=== PATIENT | female | born 1960 | race African-American/Black ===

== ENCOUNTER 2024-04-17 06:32 | Inpatient (IN) | payer OTHER ==
[~2024-04-17] VITALS: Ht 162.6 cm; Wt 83.9 kg
[~2024-04-17 06:32] MED LIST: AMLO5TAB88 PO; ASPI-1406 PO; CLOP-31 PO; FAMO20TA8 PO; ISMO20 MT; METO-539 PO
[2024-04-17 07:31] LABS: BASOPHILS % 0.7 % (0.0-2.0); DIFFERENTIAL COMMENT 0; EOSINOPHILS % 1.7 % (0.0-5.0); HEMATOCRIT. 37.7 % (36.0-48.0); HEMOGLOBIN. 11.6 g/dL (12.0-16.0); LYMPHOCYTES % 26.7 % (20.0-50.0); MEAN CORPUSCULAR HEMOGLOBIN 22.2 pg (28.0-32.0); MEAN CORPUSCULAR HGB CONC 30.7 g/dL (31.0-37.0); MEAN CORPUSCULAR VOLUME 72.5 fL (81.0-99.0); MEAN PLATELET VOLUME 7.9 fl (7.4-10.4); MONOCYTES % 9.8 % (2.0-8.0); NEUTROPHILS % 61.1 % (40.0-76.0); PLATELET 287 x1000/uL (130-400); RED CELL DISTRIBUTION WIDTH 16.3 % (11.6-14.6)
[2024-04-17 07:38] LABS: CHLORIDE 110 mEq/L (98-107); POTASSIUM 3.7 mEq/L (3.5-5.1); SODIUM 143 mEq/L (136-145)
[2024-04-17 07:39] LABS: CALCIUM 8.9 mg/dL (8.7-10.4); CARBON DIOXIDE 27 mEq/L (21-32)
[2024-04-17 07:44] LABS: CREATININE 1.1 mg/dL (0.6-1.0); GLUCOSE 103 mg/dL (70-105); UREA NITROGEN BLOOD 17 mg/dL (9-23)
[2024-04-17 07:49] LABS: PROTHROMBIN TIME 11.1 sec (9.6-11.0)
[2024-04-17 07:50] LABS: TROPONIN I HIGH SENSITIVITY 60 ng/L (3.0-34)
[2024-04-17 09:15] LABS: TROPONIN I HIGH SENSITIVITY 225 ng/L (3.0-34)
[2024-04-17] MEDS ORDERED: GUAIFENESIN 200MG/10ML SUGAR FREE UDC PO PRN (09:15)
[2024-04-17] MEDS ORDERED: DOCUSATE SODIUM 100MG CAPSULE PO PRN (09:15)
[2024-04-17] MEDS ORDERED: IPRATROPIUM/ALBUTEROL 0.5-3(2.5)MG/3ML NEB HHN PRN (09:15)
[2024-04-17] MEDS ORDERED: MAGNESIUM/ALUMINUM HYDROXIDE/SIMETHICONE 30ML UDC PO PRN (09:15)
[2024-04-17] MEDS ORDERED: ACETAMINOPHEN 325MG TABLET PO PRN (09:15)
[2024-04-17] MEDS: HYDRALAZINE 20MG/ML VIAL IV NR (09:24)
[2024-04-17] MEDS: ACETAMINOPHEN 325MG TABLET PO PRN (09:37)
[2024-04-17 09:51] LABS: CLARITY URINE CLEAR (CLEAR); COLOR URINE YELLOW (YELLOW); GLUCOSE URINE NEGATIVE (NEGATIVE); KETONES URINE NEGATIVE (NEGATIVE); LEUKOCYTE ESTERASE URINE NEGATIVE (NEGATIVE); NITRITE URINE NEGATIVE (NEGATIVE); OCCULT BLOOD URINE NEGATIVE (NEGATIVE); PROTEIN URINE 4+ (NEGATIVE); SPECIFIC GRAVITY URINE 1.012 (1.005-1.030); UROBILINOGEN URINE 0.2 E.U./dL (0.2-1.0)
[2024-04-17] MEDS: ENOXAPARIN 40MG/0.4ML SYR SUBCUT SCH (10:18)
[2024-04-17 10:19] LABS: *AMPHETAMINES SCREEN URINE NEGATIVE (NEGATIVE)
[2024-04-17 10:20] LABS: *BARBITURATES SCREEN URINE NEGATIVE (NEGATIVE); *COCAINE SCREEN URINE NEGATIVE (NEGATIVE); METHADONE URINE SCREEN NEGATIVE (NEGATIVE); OPIATES URINE SCREEN NEGATIVE (NEGATIVE)
[2024-04-17 10:21] LABS: *BENZODIAZEPINES SCREEN URINE NEGATIVE (NEGATIVE); CANNABINOID URINE SCREEN NEGATIVE (NEGATIVE); ECSTASY MDMA SCREEN URINE NEGATIVE (NEGATIVE); PHENCYCLIDINE URINE SCREEN NEGATIVE (NEGATIVE)
[2024-04-17 10:29] LABS: TROPONIN I HIGH SENSITIVITY 354 ng/L (3.0-34)
[2024-04-17 11:38] LABS: BACTERIA URINE FEW; SQUAMOUS EPITHELIAL CELL URINE 1+ /lpf (RARE/1+); WBC URINE 0-2 /hpf (0-2); YEAST URINE NONE SEEN
[2024-04-17] MEDS: ASPIRIN 81MG EC TABLET PO SCH (11:40)
[2024-04-17] MEDS: CLOPIDOGREL 75MG TABLET PO SCH (11:41)
[2024-04-17] MEDS: AMLODIPINE 5MG TABLET PO SCH (11:42)
[2024-04-17] MEDS: HYDRALAZINE 20MG/ML VIAL IV PRN (14:29)
[2024-04-17] MEDS: ONDANSETRON HCL 4MG/2ML INJ IV PRN (14:45)
[2024-04-17] MEDS: NITROGLYCERIN 0.4MG TABLET SL SL PRN (15:14)
[2024-04-17] MEDS: CLONIDINE 0.1MG TABLET PO SCH (16:15)
[2024-04-17] MEDS: ISOSORBIDE MONONITRATE 20MG TABLET PO SCH ×2 (17:39→23:22)
[2024-04-17] MEDS: ENOXAPARIN 80MG/0.8ML SYR SUBCUT SCH (18:11)
[2024-04-17 18:16] LABS: CREATINE KINASE MB FRACTION 1.6 ng/mL (0.5-3.6)
[2024-04-17] MEDS: MORPHINE SULFATE 2 MG/ML INJ (NOT FOR IM USE) IV NR ×2 (20:50→23:23)
[2024-04-17] MEDS: NITROGLYCERIN OINT 1GM/INCH UDPKT TD SCH (21:38)
[2024-04-17 22:40] VITALS: BP 199/102; PULSE 88; RESP 18; TEMP 36.50292; O2SAT 97
[2024-04-17 22:45] VITALS: BP 197/87
[2024-04-17 23:15] VITALS: BP 199/102; PULSE 88; RESP 18; TEMP 36.5292
[2024-04-18] VITALS (23 sets, daily range): BP systolic 106–191; BP diastolic 76–123; PULSE 65–107; RESP 13–22; TEMP 36.61404–36.89184; O2SAT 96–99
[2024-04-18 01:08] LABS: TROPONIN I HIGH SENSITIVITY 922 ng/L (3.0-34)
[2024-04-18] MEDS ORDERED: *PATIENT'S OWN MEDICATION STORAGE XX SCH (02:00)
[2024-04-18] MEDS: LOSARTAN 25 MG TABLET PO NR (03:07)
[2024-04-18] MEDS: CLONIDINE 0.1MG TABLET PO PRN (05:19)
[2024-04-18] MEDS: MORPHINE SULFATE 2 MG/ML INJ (NOT FOR IM USE) IV NR (05:20)
[2024-04-18 07:27] LABS: CHLORIDE 105 mEq/L (98-107); SODIUM 141 mEq/L (136-145)
[2024-04-18 07:28] LABS: CALCIUM 9.8 mg/dL (8.7-10.4); CARBON DIOXIDE 24 mEq/L (21-32)
[2024-04-18 07:33] LABS: CREATININE 0.9 mg/dL (0.6-1.0); GLUCOSE 177 mg/dL (70-105); TRIGLYCERIDE 46 mg/dL (0-150); UREA NITROGEN BLOOD 10 mg/dL (9-23)
[2024-04-18 07:34] LABS: LDL CHOLESTEROL 69 mg/dL (5-100); T4 FREE 1.32 ng/dL (0.89-1.76); THYROID STIMULATING HORMONE 0.76 uIU/mL (0.55-4.78)
[2024-04-18 07:35] LABS: BASOPHILS % 0.1 % (0.0-2.0); CHOLESTEROL 137 mg/dL (<200); DIFFERENTIAL COMMENT 0; HDL CHOLESTEROL 51 mg/dL (>65); HEMATOCRIT. 43.4 % (36.0-48.0); HEMOGLOBIN. 13.8 g/dL (12.0-16.0); LYMPHOCYTES % 7.8 % (20.0-50.0); MEAN CORPUSCULAR HEMOGLOBIN 22.7 pg (28.0-32.0); MEAN CORPUSCULAR HGB CONC 31.8 g/dL (31.0-37.0); MEAN CORPUSCULAR VOLUME 71.4 fL (81.0-99.0); MEAN PLATELET VOLUME 7.9 fl (7.4-10.4); MONOCYTES % 4.5 % (2.0-8.0); NEUTROPHILS % 87.6 % (40.0-76.0); PLATELET 351 x1000/uL (130-400); RED BLOOD CELL COUNT 6.08 mill/uL (4.2-5.4)
[2024-04-18] MEDS: LOSARTAN 25 MG TABLET PO SCH (08:15)
[2024-04-18] MEDS: PANTOPRAZOLE SODIUM 40 MG/VIAL IV SCH (08:15)
[2024-04-18 08:17] LABS: POTASSIUM 2.6 mEq/L (3.5-5.1)
[2024-04-18] MEDS: POTASSIUM CHLORIDE 20MEQ TABLET SR PO SCH (08:32)
[2024-04-18 08:39] LABS: TROPONIN I HIGH SENSITIVITY 2253 ng/L (3.0-34)
[2024-04-18] MEDS: KETOROLAC 15MG/ML VIAL IV PRN (09:52)
[2024-04-18] MEDS: KCL 20MEQ/100ML PREMIX 100 ML IV SCH (09:52)
[2024-04-18] MEDS: HYDROMORPHONE HCL/PF 1MG/ML INJ IV NR (13:51)
[2024-04-18] MEDS: AMLODIPINE 5MG TABLET PO NR (14:59)
[2024-04-18] MEDS ORDERED: ENOXAPARIN 100MG/ML SYR SUBCUT SCH (16:24)
[2024-04-18] MEDS: NITROGLYCERIN 50MG PREMIX 250 ML IV PRN (16:30)
[2024-04-18 17:15] LABS: CHLORIDE 107 mEq/L (98-107); POTASSIUM 4.2 mEq/L (3.5-5.1); SODIUM 139 mEq/L (136-145)
[2024-04-18 17:16] LABS: CALCIUM 9.4 mg/dL (8.7-10.4); CARBON DIOXIDE 22 mEq/L (21-32)
[2024-04-18 17:21] LABS: CREATINE KINASE MB FRACTION 114.6 ng/mL (0.5-3.6); GLUCOSE 166 mg/dL (70-105); UREA NITROGEN BLOOD 10 mg/dL (9-23)
[2024-04-18 17:23] LABS: CREATINE KINASE 882 IU/L (34-145)
[2024-04-18 17:27] LABS: TROPONIN I HIGH SENSITIVITY 6911 ng/L (3.0-34)
[2024-04-18] MEDS: IOHEXOL-350 100 ML BOTTLE ONE (20:09)
[2024-04-18] MEDS: MORPHINE SULFATE 2 MG/ML INJ (NOT FOR IM USE) IV PRN (22:59)
[2024-04-19] VITALS (96 sets, daily range): BP systolic 108–158; BP diastolic 68–128; PULSE 63–129; RESP 12–36; TEMP 36.50292–37.05852; O2SAT 84–99
[2024-04-19 01:17] LABS: CREATINE KINASE MB FRACTION 210.2 ng/mL (0.5-3.6)
[2024-04-19 05:21] LABS: CALCIUM 9.5 mg/dL (8.7-10.4); CARBON DIOXIDE 24 mEq/L (21-32); CHLORIDE 105 mEq/L (98-107); POTASSIUM 4.2 mEq/L (3.5-5.1); SODIUM 138 mEq/L (136-145)
[2024-04-19 05:23] LABS: CREATINE KINASE MB FRACTION 204.7 ng/mL (0.5-3.6)
[2024-04-19 05:26] LABS: CREATININE 1.2 mg/dL (0.6-1.0)
[2024-04-19 05:27] LABS: GLUCOSE 140 mg/dL (70-105); UREA NITROGEN BLOOD 16 mg/dL (9-23)
[2024-04-19 05:40] LABS: CREATINE KINASE 1663 IU/L (34-145)
[2024-04-19 05:43] LABS: TROPONIN I HIGH SENSITIVITY 33542 ng/L (3.0-34)
[2024-04-19 05:52] LABS: HEMATOCRIT 41.7 % (36.0-48.0); HEMOGLOBIN 13.1 g/dL (12.0-16.0); MEAN CORPUSCULAR HEMOGLOBIN 22.4 pg (28.0-32.0); MEAN CORPUSCULAR HGB CONC 31.5 g/dL (31.0-37.0); MEAN CORPUSCULAR VOLUME 71.2 fL (81.0-99.0); RED BLOOD CELL COUNT 5.86 mill/uL (4.2-5.4); RED CELL DISTRIBUTION WIDTH 16.3 % (11.6-14.6); WHITE BLOOD COUNT 8.7 x1000/uL (4.5-11.0)
[2024-04-19] MEDS: FERROUS SULFATE 325MG TABLET PO SCH (06:01)
[2024-04-19] MEDS: MAGNESIUM 2 G PREMIX 50 ML IV NR (07:59)
[2024-04-19 11:27] LABS: PLATELET 344 x1000/uL (130-400)
[2024-04-19] MEDS ORDERED: NICARDIPINE 100 MG in SODIUM CHLORIDE 0.9% 60 ML IV PRN (13:15)
[2024-04-19 13:39] LABS: CREATINE KINASE MB FRACTION 132.6 ng/mL (0.5-3.6)
[2024-04-19] MEDS: NICARDIPINE 50 MG in SODIUM CHLORIDE 0.9% 250 ML IV PRN (13:43)
[2024-04-19 13:52] LABS: CREATINE KINASE 1531 IU/L (34-145)
[2024-04-19 13:55] LABS: TROPONIN I HIGH SENSITIVITY 34097 ng/L (3.0-34)
[2024-04-19] MEDS: MORPHINE SULFATE 2 MG/ML INJ (NOT FOR IM USE) IV PRN (16:50)
[2024-04-19] MEDS: DOCUSATE SODIUM 100MG CAPSULE PO SCH (20:14)
[2024-04-19 20:34] LABS: CREATINE KINASE MB FRACTION 73.2 ng/mL (0.5-3.6)
[2024-04-19 20:36] LABS: CREATINE KINASE 1179 IU/L (34-145)
[2024-04-19 20:52] LABS: TROPONIN I HIGH SENSITIVITY 20972 ng/L (3.0-34)
[2024-04-20] VITALS (47 sets, daily range): BP systolic 97–137; BP diastolic 59–95; PULSE 72–105; RESP 11–30; TEMP 36.3918–37.16964; O2SAT 8–99
[2024-04-20] MEDS ORDERED: HEPARIN 1000 UNITS/ML 10ML ONE (07:24)
[2024-04-20] MEDS ORDERED: LIDOCAINE HCL 1% 10 MG/ML 10ML VIAL ONE (07:24)
[2024-04-20] MEDS ORDERED: IODIXANOL 320MG/ML 100 ML BOTTLE IV ONE (07:24)
[2024-04-20] MEDS ORDERED: FENTANYL CITRATE/PF 50MCG/ML 2ML VIAL ONE (07:55)
[2024-04-20] MEDS ORDERED: MIDAZOLAM HCL 2 MG/2 ML VIAL ONE (07:55)
[2024-04-20] MEDS ORDERED: LIDOCAINE HCL 1% 20ML VIAL ONE (08:14)
[2024-04-20] MEDS ORDERED: NALOXONE HCL 0.4MG/ML VIAL IV PRN (09:15)
[2024-04-20] MEDS: ENOXAPARIN 30MG/0.3ML SYR SUBCUT SCH (09:30)
[2024-04-20 10:29] LABS: HEMOGLOBIN 11.4 g/dL (12.0-16.0); MEAN CORPUSCULAR HEMOGLOBIN 22.5 pg (28.0-32.0); MEAN CORPUSCULAR HGB CONC 31.7 g/dL (31.0-37.0); MEAN CORPUSCULAR VOLUME 70.9 fL (81.0-99.0); PLATELET 253 x1000/uL (130-400); RED BLOOD CELL COUNT 5.08 mill/uL (4.2-5.4); RED CELL DISTRIBUTION WIDTH 16.5 % (11.6-14.6); WHITE BLOOD COUNT 9.8 x1000/uL (4.5-11.0)
[2024-04-20 10:33] LABS: CHLORIDE 105 mEq/L (98-107); POTASSIUM 4.2 mEq/L (3.5-5.1); SODIUM 137 mEq/L (136-145)
[2024-04-20 10:34] LABS: CARBON DIOXIDE 25 mEq/L (21-32)
[2024-04-20 10:35] LABS: CALCIUM 8.6 mg/dL (8.7-10.4)
[2024-04-20 10:39] LABS: CREATININE 1.2 mg/dL (0.6-1.0); GLUCOSE 110 mg/dL (70-105)
[2024-04-20 10:40] LABS: UREA NITROGEN BLOOD 23 mg/dL (9-23)
[2024-04-20] MEDS: LOSARTAN 50 MG TABLET PO SCH (10:42)
[2024-04-20] MEDS: MORPHINE SULFATE 4 MG/ML INJ (FOR IV/IM USE) IV PRN (17:59)
[2024-04-20] MEDS: LOSARTAN 50 MG TABLET PO NR (18:15)
[2024-04-21] VITALS (10 sets, daily range): BP systolic 93–128; BP diastolic 59–82; PULSE 74–90; RESP 16–24; TEMP 36.22512–37.11408; O2SAT 97–99
[2024-04-21 06:06] LABS: CHLORIDE 104 mEq/L (98-107); POTASSIUM 3.7 mEq/L (3.5-5.1); SODIUM 133 mEq/L (136-145)
[2024-04-21 06:07] LABS: CALCIUM 8.5 mg/dL (8.7-10.4); CARBON DIOXIDE 24 mEq/L (21-32)
[2024-04-21 06:12] LABS: CREATININE 1.1 mg/dL (0.6-1.0); GLUCOSE 108 mg/dL (70-105)
[2024-04-21 06:13] LABS: HEMOGLOBIN 10.4 g/dL (12.0-16.0); MEAN CORPUSCULAR HGB CONC 32.6 g/dL (31.0-37.0); MEAN CORPUSCULAR VOLUME 70.6 fL (81.0-99.0); PLATELET 230 x1000/uL (130-400); RED BLOOD CELL COUNT 4.52 mill/uL (4.2-5.4); RED CELL DISTRIBUTION WIDTH 16.1 % (11.6-14.6); UREA NITROGEN BLOOD 26 mg/dL (9-23); WHITE BLOOD COUNT 7.7 x1000/uL (4.5-11.0)
[2024-04-21 06:20] LABS: TROPONIN I HIGH SENSITIVITY 18831 ng/L (3.0-34)
[2024-04-21] MEDS: AMLODIPINE 10MG TABLET PO SCH (08:15)
[2024-04-21] MEDS: FAMOTIDINE 20MG/2ML VIAL IV SCH (08:16)
[2024-04-21] MEDS: LOSARTAN 100 MG TABLET PO SCH (10:00)
[2024-04-21 21:31] LABS: CLARITY URINE CLEAR (CLEAR); COLOR URINE YELLOW (YELLOW); GLUCOSE URINE NEGATIVE (NEGATIVE); KETONES URINE NEGATIVE (NEGATIVE); LEUKOCYTE ESTERASE URINE 1+ (NEGATIVE); NITRITE URINE NEGATIVE (NEGATIVE); OCCULT BLOOD URINE NEGATIVE (NEGATIVE); PH URINE 5.5 (4.5-8.0); PROTEIN URINE NEGATIVE (NEGATIVE); SPECIFIC GRAVITY URINE 1.009 (1.005-1.030); UROBILINOGEN URINE 0.2 E.U./dL (0.2-1.0)
[2024-04-21 21:56] LABS: BACTERIA URINE NONE SEEN; RBC URINE NONE SEEN /hpf (0-2); SQUAMOUS EPITHELIAL CELL URINE NONE SEEN /lpf (RARE/1+); WBC URINE NONE SEEN /hpf (0-2)
[2024-04-22] VITALS (12 sets, daily range): BP systolic 93–149; BP diastolic 63–83; PULSE 63–79; RESP 16–21; TEMP 36.00288–37.503; O2SAT 9–99
[2024-04-22 08:47] LABS: CARBON DIOXIDE 24 mEq/L (21-32); CHLORIDE 104 mEq/L (98-107); POTASSIUM 4.1 mEq/L (3.5-5.1); SODIUM 135 mEq/L (136-145)
[2024-04-22 08:48] LABS: CALCIUM 8.7 mg/dL (8.7-10.4)
[2024-04-22 08:53] LABS: CREATININE 1.1 mg/dL (0.6-1.0); GLUCOSE 136 mg/dL (70-105); UREA NITROGEN BLOOD 24 mg/dL (9-23)
[2024-04-22 10:11] LABS: TROPONIN I HIGH SENSITIVITY 13519 ng/L (3.0-34)
[2024-04-22] MEDS: IOHEXOL-350 100 ML BOTTLE ONE (16:47)
[2024-04-22] MEDS: FAMOTIDINE 20MG TABLET PO SCH (20:21)
[2024-04-23] VITALS (9 sets, daily range): BP systolic 93–113; BP diastolic 66–86; PULSE 64–83; RESP 15–20; TEMP 36.00288–37.16964; O2SAT 97–100
[2024-04-23 07:14] LABS: HEMATOCRIT 28.6 % (36.0-48.0); MEAN CORPUSCULAR HEMOGLOBIN 22.4 pg (28.0-32.0); MEAN CORPUSCULAR HGB CONC 31.5 g/dL (31.0-37.0); PLATELET 201 x1000/uL (130-400); RED BLOOD CELL COUNT 4.03 mill/uL (4.2-5.4); RED CELL DISTRIBUTION WIDTH 16.3 % (11.6-14.6); WHITE BLOOD COUNT 4.6 x1000/uL (4.5-11.0)
[2024-04-23 07:21] LABS: CARBON DIOXIDE 25 mEq/L (21-32); CHLORIDE 105 mEq/L (98-107); POTASSIUM 4.4 mEq/L (3.5-5.1); SODIUM 137 mEq/L (136-145)
[2024-04-23 07:22] LABS: CALCIUM 8.7 mg/dL (8.7-10.4)
[2024-04-23 07:26] LABS: CREATININE 1.1 mg/dL (0.6-1.0); GLUCOSE 112 mg/dL (70-105)
[2024-04-23 07:27] LABS: UREA NITROGEN BLOOD 22 mg/dL (9-23)
[2024-04-23 07:33] LABS: TROPONIN I HIGH SENSITIVITY 9248 ng/L (3.0-34)
[2024-04-23] MEDS ORDERED: ASPI-1406 PO (15:58)
[2024-04-23] MEDS ORDERED: AMLO10TA80 PO (15:58)
[2024-04-23] MEDS ORDERED: FERR-63 PO (15:58)
[2024-04-23] MEDS ORDERED: CLON0.1T PO (15:58)
[2024-04-23] MEDS ORDERED: LOSA100T33 PO (15:58)
[2024-04-23] MEDS ORDERED: HYDR-4001 MT (18:00)
== END 2024-04-23 18:40 | disposition home or self-care (01) | DRG 190 ==
LOC: ER 06:40 → EDBEDREQTM 07:48 → EDBEDREQ 07:48 → 5WST 21:26 → 8WST 22:26 → MICUSO 04-18 15:46 → 3WST 04-20 09:07
PROVIDERS: ADMIT Preventive Medicine Clinical Informatics; ATTEND Preventive Medicine Clinical Informatics
PROC: 4A023N7 Measurement of Cardiac Sampling and Pressure, Left Heart, Percutaneous Approach (ICD-10-PCS; principal; 2024-04-20)
PROC: B211YZZ Fluoroscopy of Multiple Coronary Arteries using Other Contrast (ICD-10-PCS; 2024-04-20)
PROC: B215YZZ Fluoroscopy of Left Heart using Other Contrast (ICD-10-PCS; 2024-04-20)
PROC: 02HV33Z Insertion of Infusion Device into Superior Vena Cava, Percutaneous Approach (ICD-10-PCS; 2024-04-20)
DX: I21.4 Non-ST elevation (NSTEMI) myocardial infarction (principal); I25.42 Coronary artery dissection; N17.9 Acute kidney failure, unspecified; I10 Essential (primary) hypertension; E78.00 Pure hypercholesterolemia, unspecified; I16.1 Hypertensive emergency; D50.9 Iron deficiency anemia, unspecified; I25.10 Atherosclerotic heart disease of native coronary artery without angina pectoris; Z95.5 Presence of coronary angioplasty implant and graft; Z79.02 Long term (current) use of antithrombotics/antiplatelets; Z79.899 Other long term (current) drug therapy
CPT/HCPCS: 36415; 70496; 70498; 71045; 71275; 74174; 80048; 80061; 80305; 81003; 82550; 82553; 83735; 83880; 84100; 84132; 84439; 84443; 84484; 85025; 85027; 93005; 93306; 93458; 99291; C1769; C1887; C1893; J0360; J1170; J1644; J1650; J1885; J2250; J2270; J2405; J2470; J3010; J3475; J3480; J3490; J7050; Q9967